=== PATIENT | male | born 1990 | race Caucasian/White ===

== ENCOUNTER 2021-05-11 14:47 | Outpatient (CLI) | payer BC, SELFPAY ==
[2021-05-11 16:24] LABS: Anion Gap 12 mmol/L (8-16); Blood Urea Nitrogen 14 mg/dL (9-20); Carbon Dioxide 21 mmol/L (22-30); Chloride 100 mmol/L (98-107); Estimated Glomerular Filt Rate > 60; Glucose 390 mg/dL (65-110); Potassium 3.6 mmol/L (3.4-5.0); Sodium 133 mmol/L (137-145)
[2021-05-11 16:54] LABS: Microalbumin Urine Random 6.1 mg/L (0-16.7)
[2021-05-11 17:09] LABS: Creatinine Urine 45.1 mg/dL; MALB Creatinine Ratio 13.5 mg/g (0-30)
[2021-05-14 08:19] LABS: C-Peptide 0.51 ng/mL (0.80-3.85)
[2021-05-14 19:34] LABS: Glutamic acid decarboxylase AA 24 IU/mL (<5)
== END 2021-05-11 14:48 | disposition home or self-care (01) ==
LOC: ANHWCLAB 14:51
PROVIDERS: Visit Provider Internal Medicine Endocrinology, Diabetes & Metabolism
DX: E10.9 Type 1 diabetes mellitus without complications (principal)
CPT/HCPCS: 36415; 80048; 82043; 84681; 86341

== ENCOUNTER 2021-07-25 14:30 | Outpatient (CLI) | payer BC, SELFPAY ==
[2021-07-25 15:21] LABS: Anion Gap 8 mmol/L (8-16); Blood Urea Nitrogen 25 mg/dL (9-20); Calcium 9.3 mg/dL (8.4-10.2); Carbon Dioxide 25 mmol/L (22-30); Chloride 105 mmol/L (98-107); Estimated Glomerular Filt Rate > 60; Glucose 93 mg/dL (65-110); Potassium 3.8 mmol/L (3.4-5.0); Sodium 138 mmol/L (137-145)
== END 2021-07-25 14:31 | disposition home or self-care (01) ==
LOC: ANHWCLAB 14:32
PROVIDERS: Visit Provider Internal Medicine Endocrinology, Diabetes & Metabolism
DX: E10.9 Type 1 diabetes mellitus without complications (principal); R76.8 Other specified abnormal immunological findings in serum
CPT/HCPCS: 36415; 80048; 84681

== ENCOUNTER 2021-07-25 14:50 | Outpatient (RCR) | payer BC, SELFPAY ==
[2021-07-25 14:56] VITALS: BMI 24.3
[2021-07-25 15:01] VITALS: BMI 24.3
== END 2021-10-10 10:41 | disposition home or self-care (01) ==
LOC: ANHDMC 14:50
PROVIDERS: Visit Provider Internal Medicine Endocrinology, Diabetes & Metabolism
DX: E10.10 Type 1 diabetes mellitus with ketoacidosis without coma (principal); Z71.3 Dietary counseling and surveillance
CPT/HCPCS: 97802; 99199